=== PATIENT | male | born 1970 | race Caucasian/White ===

== ENCOUNTER 2020-05-11 14:33 | Emergency (ER) | payer OTHER ==
[~2020-05-11] VITALS: Ht 198.1 cm; Wt 83.9 kg
[~2020-05-11 14:33] MED LIST: NOHOMEMEDICATIONS; NORCO 5-325 TA1 EACH PO
[2020-05-11] MEDS ORDERED: IBUPROFEN 800800 MG PO (16:06)
[2020-05-11] MEDS ORDERED: FLEXERIL PO (16:06)
[2020-05-11 16:11] VITALS: BP 147/91
== END 2020-05-11 16:14 | disposition home or self-care (01) ==
LOC: M.ERS 14:33
DX: M54.5 Low back pain (principal); F17.210 Nicotine dependence, cigarettes, uncomplicated